=== PATIENT | female | born 1990 | race Caucasian/White ===

== ENCOUNTER 2020-11-12 10:13 | Outpatient (CLI) | payer OTHER, SELFPAY ==
--- NOTE | ~2020-11-12 | US_ITS ---
EXAMINATION: US venous doppler [facility] DATE: 11/12/2020 10:49 INDICATION: Left lower limb pain. TECHNIQUE: Grayscale ultrasound images without and with compression and Doppler ultrasound images of the left lower extremity veins were obtained. COMPARISON: Ultrasound 08/28/2017 FINDINGS: The visualized portions of left profunda (deep) femoral vein, popliteal vein, peroneal veins, posteri or tibial veins, and greater saphenous vein outflow are patent. There is thrombus in left common femo ral vein and femoral vein. IMPRESSION: 1. Deep vein thrombosis involving left common femoral vein and femoral vein. I called this result to Blake Jackson in the office of Dr. Danielson. Reviewed, dictated and finalized at location B.
== END 2020-11-12 10:14 | disposition home or self-care (01) ==
LOC: ANHIMG 10:22
PROVIDERS: PCP Physician Assistant; Visit Provider Physician Assistant
DX: M79.89 Other specified soft tissue disorders (principal); I82.412 Acute embolism and thrombosis of left femoral vein
CPT/HCPCS: 93971

== ENCOUNTER 2023-09-03 09:38 | Outpatient (CLI) | payer OTHER, SELFPAY ==
--- NOTE | ~2023-09-03 | MMUS_ITS ---
EXAMINATION: MM diag wilfred implant BI w carlos, US breast RT limited HISTORY: Palpable lump in the upper outer quadrant of the right breast TECHNIQUE: Craniocaudal, mediolateral, and mediolateral oblique 3-D tomosynthesis images with implant displacement of the breasts were performed and synthetic 2-D images were generated. Craniocaudal, m ediolateral oblique, and mediolateral views of the breasts without implant displacement were obtained using full field digital mammography. CAD analysis was submitted and interpreted. High resolution li [employer] right breast ultrasound was performed. COMPARISON: None, baseline BREAST PARENCHYMAL COMPOSITION: There are scattered areas of fibroglandular density. FINDINGS: MAMMOGRAPHIC FINDINGS: No suspicious mass, calcification, or architectural distortion are identified in either breast to sug gest malignancy. No mammographic correlate is identified for the reported palpable abnormality of con cern in the upper outer quadrant of the right breast. ULTRASOUND: There is no evidence of focal abnormal solid or cystic lesion in the vicinity of the reported palpabl e abnormality of concern of the right breast. IMPRESSION: 1. No specific mammographic or sonographic correlate is identified for the reported palpable abnormal ity of concern of the right breast. Further evaluation at this time should be based on clinical asses sment. Continued follow-up physical examination is recommended. 2. Recommend routine screening mammography beginning at age 40. BI-RADS Category 1: Negative Reviewed, dictated and finalized at location A. EST FIELD TICKETER IMPRESSION: 1. No specific mammographic or sonographic correlate is identified for the repo rted palpable abnormality of concern of the right breast. Further evaluation at this time should be based on clinical assessment. Continued follow-up physical examination is recommended. 2. Recommend routine screening mammography beginning at age 40. BI-RADS Category 1: Negative
== END 2023-09-03 09:39 | disposition home or self-care (01) ==
LOC: CHSIMG 09:41
PROVIDERS: PCP Nurse Practitioner Family; Visit Provider Nurse Practitioner Family
DX: N64.4 Mastodynia (principal); N63.13 Unspecified lump in the right breast, lower outer quadrant
CPT/HCPCS: 76642; 77062; 77066; G0279

== ENCOUNTER 2024-11-06 13:49 | Outpatient (CLI) | payer OTHER, SELFPAY ==
--- OUTSIDE RECORDS SUMMARY | 2024-11-06 14:10 | XMS_ITS | Encounter Summary ---
Author Organization [facility] Address [address] [place] [address] Phone Care Team Providers Care Erector Operator Name Role Phone Julien Barksdale MD Primary Care Provider +1- [phone] Julien Barksdale MD Primary Care Provider +1- [phone] Villa Figueroa MD Primary Care Provider +1- [phone] Julien Barksdale MD Primary Care Provider +1- [phone] Encounter Details Date Type Department Care Team (Latest Contact Info) Description 04/26/2017 Orders Only [facility] CONVERSION Scanning, Provider Social History Tobacco Use Types Packs/Day Years Used Date Smoking Tobacco: Never Assessed Comments Unknown Sex and Gender Information Value Date Recorded Sex Assigned at Not on file 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 Gender Identity Not on file Sexual Orientation Not on file documented as of this encounter Plan of Treatment Not on file documented as of this encounter Procedures Procedure Name Priority Date/Time Associated Diagnosis Comments OBSTETRIC/GYNECOLOGY ULTRASONOGRAPHY REPORT 04/26/2017 3:59 PM CDT documented in this encounter Results * OBSTETRIC/GYNECOLOGY ULTRASONOGRAPHY REPORT (04/26/2017 3:59 PM CDT) Anatomical Region Laterality Modality Ultrasound us Provider Scanning IMG OB US PROCEDURES Final Res ult documented in this encounter Visit Diagnoses Not on filedocumented in this encounter Care Teams Erector Operator Relationship Specialty Start Date End Date Julien Barksdale MD [address] [place] [address] PCP - General 04/20/17 08/12/17 Julien Barksdale MD [address] [place] [address] PCP - General 08/13/17 08/13/17 Villa Figueroa MD [address] [facility] [id number] [place] [address] PCP - General 08/14/17 08/14/17 Julien Barksdale MD [address] [place] [address] PCP - General 08/15/17 documented as of this encounter
--- OUTSIDE RECORDS SUMMARY | 2024-11-06 14:10 | XMS_ITS | Referral Summary ---
Author Organization [facility] Address [address] [place] [address] Care Team Providers Care Beer Cooler Name Role Phone Julien Barksdale MD Primary Care Provider +1- [phone] Allergies No known active allergies Medications Xarelto 20 mg tablet Take 1 tablet (20 mg total) by mouth daily with dinner 12/15/2022 Active escitalopram (LEXAPRO) 10 mg tablet 1 tablet (10 mg total) 08/23/2017 Active cyclobenzaprine (FLEXERIL) 10 mg tablet Take 1 tablet (10 mg total) by mouth 3 (three) times a day as needed for muscle spasms 20 tablet 02/23/2023 Active Active Problems Problem Noted Date Diagnosed Date 06/22/2017 Social History Tobacco Use Types Packs/Day Years Used Date Smoking Tobacco: Every Day Smokeless Tobacco: Never Tobacco Cessation:Ready to Q uit: Not Asked; Counseling Given: Not Answered Alcohol Use Standard Drinks/Week Comments Defer 0 (1 standard drink = 0.6 oz pur e alcohol) Comments Unknown Sex and Gender Information Value Date Recorded Sex Assigned at Not on file 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 Gender Identity Not on file Sexual Orientation Not on file Last Filed Vital Signs Vital Sign Reading Time Taken Comments Blood Pressure 126/80 02/23/2023 7:31 PM CDT Pulse 89 02/23/2023 7:31 PM CDT Temperature 36.4 C (97.6 F) 02/23/2023 7:31 PM CDT Respiratory Rate 16 02/23/2023 7:31 PM CDT Oxygen Saturation 97% 02/23/2023 7:31 PM CDT Inhaled Oxygen Concentration - - Weight 67.7 kg (149 lb 3.2 oz) 02/23/2023 7:31 P M CDT Height 167.6 cm (5' 5.98 ) 02/23/2023 7:31 PM CD T Body Mass Index 24.09 02/23/2023 7:31 PM CDT Plan of Treatment Not on file Insurance [facility] CHOICE PLUS Advance Directives For more information, please contact: [phone] * Full Code (Latest Code Status on File) Date Activated Date Inactivated Comments 06/23/2017 12:31 AM 06/25/2017 11:35 AM Care Teams Beer Cooler Relationship Specialty Start Date End Date Julien Barksdale MD [address] [place] [address] PCP - General 08/15/17
--- OUTSIDE RECORDS SUMMARY | 2024-11-06 14:10 | XMS_ITS | Continuity of Care Document ---
Author Organization [facility] Address [address] [place] [address] [place] [address] Phone Care Team Providers Care Casino Gaming Inspector Name Role Phone Rio Segura MD Unavailable Unavailable Advance Directives Directive Yes / No Effective Date File Name No Information Encounters Encounter Description Practice Location Reason(s) For Visit Diagnoses Date Provider Providers Copied on Encounter [facility], [address] [place], [id number], [place] tel:[phone] [facility] No Information Colton Pate. [address], [facility] [place], [id number], [place]. tel:[phone] Family History Family Member Type Diagnosis Age At Onset No Information Payers Payer name Insurance type Covered alliance party ID Authoriza tion(s) No Information Social History Type Description Quantity Date Captured Comments Sex Female Smoking Status No Information Chief Complaint And Reason For Visit No Information Plan Of Treatment Date Type Action Status No Information History Of Present Illness Encounter Date Complaint History Of Prese nt Illness No Information Instructions Date Instruction Additional Infor mation No Information Assessments Type Assessment Date No Information
--- OUTSIDE RECORDS SUMMARY | 2024-11-06 14:10 | XMS_ITS | Clinical Summary ---
Author Organization [facility] Address [address] [place] [address] Care Team Providers Care Country Manager Name Role Phone Julien Barksdale MD Primary Care Provide r Source Comments [facility],non-owned Affiliates and Associated Physician Practices is amultiple site organization consisting of ambulatory clinics and hospital sitesin [place], [place], [place] and [place]. This disclosure is being madepursuant to the Care Everywhere program and may not contain all information available regarding this patient. Last updated 18.[facility] Allergies No known active allergies Medications * Be aware that medications may not be up to date on this document. Alwaysverify current medications with the patient. acetaminophen (TYLENOL) 325 MG tablet Take 650 mg by mouth every 4 hours as needed for Fever or Pain Maximum allowable Acetaminophen amount = 4 Grams (4000 mg) / 24 hours. Active ibuprofen (MOTRIN) 800 MG tablet Take 1 Tab by mouth every 6 hours as needed for Pain 20 Tab 0 6 Active HYDROcodone-ac etaminophen (NORCO) 5-325 MG tablet Take 1 Tab by mouth every 4 hours as needed for Pain 5 Tab 0 6 Active Active Problems Problem Noted Date Diagnosed Date Evaluate anatomy not seen on prior sonogram 11/2015 Previous delivery, antepartum condition or complication 08/03/2015 History of oligohydramnios i n prior , currently 08/03/2015 History of poor growth 08/03/2015 Supervision of high-risk of young mathew igravida 08/03/2015 Maternal DVT (deep vein thrombosis), history of 07/30/2015 [facility]2015 Family History Medical History Relation Name Comments Clotting Disorder Father Relation Name Status Comments Father Social History Tobacco Use Types Packs/Day Years Used Date Smoking Tobacco: Former Cigarettes Q uit: 07/23/2012 Alcohol Use Standard Drinks/Week Comments No 0 (1 standard drink = 0.6 oz pur e alcohol) Comments No Sex and Gender Information Value Date Recorded Sex Assigned at Not on file Legal Sex Female 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 Gender Identity Not on file Sexual Orientation Not on file Last Filed Vital Signs Vital Sign Reading Time Taken Comments Blood Pressure 133/92 02/28/2016 9:48 AM CDT Pulse 89 02/28/2016 9:48 AM CDT Temperature 37 C (98.6 F) 02/28/2016 9:48 AM CDT Respiratory Rate 18 02/28/2016 9:48 AM CDT Oxygen Saturation 100% 02/28/2016 9:48 AM CDT Inhaled Oxygen Concentration - - Weight 60.8 kg (134 lb) 02/28/2016 9:48 AM CDT Height 167.6 cm (5' 5.98 ) 02/28/2016 9:48 AM CD T Body Mass Index 21.64 02/28/2016 9:48 AM CDT Plan of Treatment Health Maintenance Due Date Last Done Comments HIV SCREENING 02/01/2003 HEPATITIS C SCREENING 01/28/2006 DTAP/TDAP/TD VACCINES (1 - Tdap) 02/01/2007 HEPATITIS B VACCINE (1 of 3 - 19+ 3-dose series) 02/01/2007 COVID-19 VACCINE (1 - 2023-2 5 season) 2024 DEPRESSION SCREENING 07/23/2024 INFLUENZA VACCINE (Season Ended) 2025 ZOSTER VACCINE (1 of 2) 02/01/2038 HIB VACCINE Aged Out No longer eligi ble based on patient's age to complete this topic HPV VACCINE Aged Out No longer eligi ble based on patient's age to complete this topic MENINGOCOCCAL (Group B) VACC INE SHARED DECISION-MAKING Aged Out No longer eligibl e based on patient's age to complete this topic MENINGOCOCCAL GROUPS A/C/Y/W VACCINE Aged Out No longer eligible b ased on patient's age to complete this topic PNEUMOCOCCAL VACCINE Aged Out No long er eligible based on patient's age to complete this topic Insurance [facility] Care Teams Country Manager Relationship Specialty Start Date End Date Julien Barksdale MD PCP - General Family Medicine 07/19/15
--- OUTSIDE RECORDS SUMMARY | 2024-11-06 14:10 | XMS_ITS | Encounter Summary ---
Author Organization [facility] Address [address] [place] [address] Phone Care Team Providers Care Meter Reader Chief Name Role Phone Julien Barksdale MD Primary Care Provider +1- [phone] Julien Barksdale MD Primary Care Provider +1- [phone] Villa Figueroa MD Primary Care Provider +1- [phone] Julien Barksdale MD Primary Care Provider +1- [phone] Encounter Details Date Type Department Care Team (Latest Contact Info) Description 08/10/2017 Orders Only [facility] CONVERSION Scanning, Provider Social History Tobacco Use Types Packs/Day Years Used Date Smoking Tobacco: Every Day Smokeless Tobacco: Never Alcohol Use Standard Drinks/Week Comments Defer 0 (1 standard drink = 0.6 oz pur e alcohol) Comments Unknown Sex and Gender Information Value Date Recorded Sex Assigned at Not on file 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 Gender Identity Not on file Sexual Orientation Not on file documented as of this encounter Plan of Treatment Not on file documented as of this encounter Procedures Procedure Name Priority Date/Time Associated Diagnosis Comments OBSTETRIC/GYNECOLOGY ULTRASONOGRAPHY REPORT 08/10/2017 10:19 AM WELLNESS NURSE OBSTETRIC/GYNECOLOGY ULTRASONOGRAPHY REPORT 08/10/2017 9:56 AM WELLNESS NURSE documented in this encounter Results * OBSTETRIC/GYNECOLOGY ULTRASONOGRAPHY REPORT (08/10/2017 10:19 AM WELLNESS NURSE) Anatomical Region Laterality Modality Ultrasound us Provider Scanning IMG OB US PROCEDURES Final Res ult * OBSTETRIC/GYNECOLOGY ULTRASONOGRAPHY REPORT (08/10/2017 9:56 AM WELLNESS NURSE) Anatomical Region Laterality Modality Ultrasound us Provider Scanning IMG OB US PROCEDURES Edited Re sult - Final documented in this encounter Visit Diagnoses Not on filedocumented in this encounter Care Teams Meter Reader Chief Relationship Specialty Start Date End Date Julien Barksdale MD [address] [place] [address] PCP - General 04/20/17 08/12/17 Julien Barksdale MD [address] [place] [address] PCP - General 08/13/17 08/13/17 Villa Figueroa MD [address] [facility] [id number] [place] [address] PCP - General 08/14/17 08/14/17 Julien Barksdale MD [address] [place] [address] PCP - General 08/15/17 documented as of this encounter
--- OUTSIDE RECORDS SUMMARY | 2024-11-06 14:10 | XMS_ITS | Clinical Summary ---
Author Organization [facility] Address [address] [place] [address] Care Team Providers Care Java Web User Interface Developer Name Role Phone Julien Barksdale MD Primary Care Provider Katharina wilkes Social History Tobacco Use Types Packs/Day Years Used Date Smoking Tobacco: Never Assessed Comments Unknown Sex and Gender Information Value Date Recorded Sex Assigned at Not on file Legal Sex Female 8:17 PM CDT Gender Identity Not on file Sexual Orientation Not on file Last Filed Vital Signs Vital Sign Reading Time Taken Comments Blood Pressure 122/80 07/19/2015 9:43 AM CHARRER Pulse 118 07/19/2015 9:43 AM CHARRER Temperature - - Respiratory Rate - - Oxygen Saturation - - Inhaled Oxygen Concentration - - Weight 56.3 kg (124 lb 2.1 oz) 07/19/2015 9:43 A M CHARRER Height 167.6 cm (5' 6 ) 07/19/2015 9:43 AM CHARRER Body Mass Index 20.04 07/19/2015 9:43 AM CHARRER Plan of Treatment Health Maintenance Due Date Last Done Comments Cervical Cancer Screening Pa p Smear (Age 30 to 64) Every 3 Years 1988 Annual Physical 02/01/1991 Hepatitis C 02/01/2006 DTaP, Tdap and Td Vaccines ( 1 - Tdap) 02/01/2007 Hepatitis B Vaccines (1 of 3 - 19+ 3-dose series) 02/01/2007 Cervical Cancer Screening Pa p with HPV Testing (Age 30 to 64) Every 5 Years 02/01/2018 Cervical Cancer Screening with HPV 02/01/2018 COVID-19 Vaccine (2023-2 5 season) 2024 HPV Vaccines Aged Out No longer eligi ble based on patient's age to complete this topic Meningococcal B Vaccine Aged Out No l onger eligible based on patient's age to complete this topic Meningococcal Vaccine Aged Out No iza humberto eligible based on patient's age to complete this topic Pneumococcal Vaccine: Pediat rics (0 to 5 Years) and At-Risk Patients (6 to 49 Years) Aged Out No longer eligible b ased on patient's age to complete this topic RSV Immunizations Under 20 Months Aged Out No longer eligible based on patient's age to complete this topic Care Teams Java Web User Interface Developer Relationship Specialty Start Date End Date Julien Barksdale MD PCP - General 02/18/16
--- OUTSIDE RECORDS SUMMARY | 2024-11-06 14:10 | XMS_ITS | Encounter Summary ---
Author Organization [facility] Address [address] [place] [address] Phone Care Team Providers Care Collections Officer Name Role Phone Julien Barksdale MD Primary Care Provider +1- [phone] Julien Barksdale MD Primary Care Provider +1- [phone] Villa Figueroa MD Primary Care Provider +1- [phone] Julien Barksdale MD Primary Care Provider +1- [phone] Encounter Details Date Type Department Care Team (Latest Contact Info) Description 07/04/2017 Orders Only [facility] CONVERSION Scanning, Provider Social History Tobacco Use Types Packs/Day Years Used Date Smoking Tobacco: Every Day Smokeless Tobacco: Never Alcohol Use Standard Drinks/Week Comments Defer 0 (1 standard drink = 0.6 oz pur e alcohol) Comments Unknown Sex and Gender Information Value Date Recorded Sex Assigned at Not on file 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 Gender Identity Not on file Sexual Orientation Not on file documented as of this encounter Plan of Treatment Not on file documented as of this encounter Procedures Procedure Name Priority Date/Time Associated Diagnosis Comments OBSTETRIC/GYNECOLOGY ULTRASONOGRAPHY REPORT 08/02/2017 1:31 PM RESEARCH BIOSTATISTICIAN OBSTETRIC/GYNECOLOGY ULTRASONOGRAPHY REPORT 07/04/2017 10:26 AM RESEARCH BIOSTATISTICIAN documented in this encounter Results * OBSTETRIC/GYNECOLOGY ULTRASONOGRAPHY REPORT (08/02/2017 1:31 PM RESEARCH BIOSTATISTICIAN) Anatomical Region Laterality Modality Ultrasound us Provider Scanning IMG OB US PROCEDURES Final Res ult * OBSTETRIC/GYNECOLOGY ULTRASONOGRAPHY REPORT (07/04/2017 10:26 AM RESEARCH BIOSTATISTICIAN) Anatomical Region Laterality Modality Ultrasound us Provider Scanning IMG OB US PROCEDURES Final Res ult documented in this encounter Visit Diagnoses Not on filedocumented in this encounter Care Teams Collections Officer Relationship Specialty Start Date End Date Julien Barksdale MD [address] [place] [address] PCP - General 04/20/17 08/12/17 Julien Barksdale MD [address] [place] [address] PCP - General 08/13/17 08/13/17 Villa Figueroa MD [address] [facility] [id number] [place] [address] PCP - General 08/14/17 08/14/17 Julien Barksdale MD [address] [place] [address] PCP - General 08/15/17 documented as of this encounter
--- OUTSIDE RECORDS SUMMARY | 2024-11-06 14:10 | XMS_ITS | Clinical Summary ---
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 DIRECTOR Gender Identity Not on file Sexual Orientation Not on file Obstetrics History Last Filed Vital Signs Vital Sign Reading [...] 02/23/2023 7:31 PM CDT Plan of Treatment Health Maintenance Due Date Last Done Comments Cervical Cancer Screening 1988 Depression Screening 1988 Hepatitis C Screening 1988 Varicella Vaccines (1 of 2 - 13+ 2-dose series) 02/01/2001 Hepatitis B Screening 02/01/2006 Regular Well Visit/Exam 18-64 02/01/2006 Pneumococcal vaccine <65 (1 of 2 - PCV) 02/01/2007 Covid-19 Vaccine (2 - 2023-2 5 season) 2024 09/27/2020 Influenza Vaccine (#1) 2024 , 03/09/2017 DTaP/Tdap/Td Vaccine (2 - Td or Tdap) 08/02/2027 08/02/2017 HPV Vaccines Aged Out No longer eligi ble based on patient's age to complete this topic Insurance [facility] CHOICE PLUS [facility] Address[facility] [address] [place] [address] [facility] CHOICE PLUS [facility]/PPO Address: [place] [address] Advance Directives For more information, please contact: [phone] * Full Code (Latest Code Status on File) Date Activated Date Inactivated Comments 06/23/2017 12:31 AM 06/25/2017 11:35 AM Care Teams Founder And Chief Technical Officer Relationship Specialty Start Date End Date Julien Barksdale MD [address] [place] [address] PCP - General 08/15/17
--- OUTSIDE RECORDS SUMMARY | 2024-11-06 14:10 | XMS_ITS | Clinical Summary ---
Author Organization [facility] Address [address] [place] [address] Phone Care Team Providers Care Director Of Safety And Security Name Role Phone Julien Barksdale MD Primary Care Provider [phone] Allergies No known active allergies Medications HYDROcodone-acet aminophen (NORCO) 5-325 MG Tablet Take 1 Tab by mouth every 4 hours as needed for Pain. 20 Tab 0 01/23/2016 Active HYDROcodone-acet aminophen (NORCO) 5-325 MG Tablet Take 1 Tab by mouth every 4 hours as needed for Pain. 10 Tab 0 2016 Active traMADol (ULTRAM) 50 MG Tablet Take 1 Tab by mouth every 6 hours as needed for Pain. 20 Tab 0 02/21/2016 Active naproxen (NAPROSYN) 375 MG Tablet Take 1 Tab by mouth 2 times daily as needed for Pain. 20 Tab 0 02/21/2016 Active Active Problems No known active problems Social History Tobacco Use Types Packs/Day Years Used Date Smoking Tobacco: Never Alcohol Use Standard Drinks/Week Comments No 0 (1 standard drink = 0.6 oz pur e alcohol) Comments No Sex and Gender Information Value Date Recorded Sex Assigned at Not on file Legal Sex Female 2:29 PM CDT Gender Identity Not on file Sexual Orientation Not on file Last Filed Vital Signs Vital Sign Reading Time Taken Comments Blood Pressure 144/80 02/21/2016 9:59 AM CDT Pulse 84 02/21/2016 9:59 AM CDT Temperature 36.1 C (96.9 F) 02/21/2016 9:59 AM CDT Respiratory Rate 16 02/21/2016 9:59 AM CDT Oxygen Saturation 99% 02/21/2016 9:59 AM CDT Inhaled Oxygen Concentration - - Weight 61.2 kg (135 lb) 02/21/2016 9:59 AM CDT Height 167.6 cm (5' 6 ) 02/21/2016 9:59 AM CDT Body Mass Index 21.79 02/21/2016 9:59 AM CDT Plan of Treatment Not on file Insurance MEDICAID [employer] Care Teams Director Of Safety And Security Relationship Specialty Start Date End Date Julien Barksdale MD [address] [place] [address] PCP - General Family Medicine 01/23/16
== END 2024-11-06 13:50 | disposition home or self-care (01) ==
LOC: ANHAUDIO 13:49
PROVIDERS: PCP Nurse Practitioner Family; Visit Provider Nurse Practitioner Family
DX: H93.13 Tinnitus, bilateral (principal)
CPT/HCPCS: 92557; 92567